=== PATIENT | male | born 1975 | race Caucasian/White ===

== ENCOUNTER → 2024-03-04 | Outpatient (CLI) | payer BC ==
--- NOTE | 2024-03-05 08:17 | XR ---
EXAMINATION TYPE: XR chest 2V DATE OF EXAM: 03/04/2024 3:36 PM COMPARISON: 10/20/2014 CLINICAL INDICATION: Male, 48 years old with shortness of breath, history of J42 UNSPECIFIED CHRONIC BRONCHITIS, , TECHNIQUE: Frontal and lateral views FINDINGS: The cardiomediastinal silhouette, aorta, and pulmonary vasculature are within normal limits. Lungs an d pleural spaces are clear. IMPRESSION: No acute cardiopulmonary process. [facility], , 03/05/2024 8:14 AM
== END | disposition home or self-care (01) ==
LOC: RADXRMAIN 15:26
PROVIDERS: ATTEND Nurse Practitioner Family
DX: J42 Unspecified chronic bronchitis (principal)
CPT/HCPCS: 71046